=== PATIENT | female | born 1950 | race Caucasian/White ===

== ENCOUNTER → 2017-08-07 | Outpatient (CLI) | payer OTHER ==
[~2017-08-07] MED LIST: CLTP PO; CMD2 PO; CYAN3INJ; IBUP600T44 PO; MULT-506 PO; NERVE PILL; PRCUNK PO; VITAMIN B 12
--- NOTE | 2017-08-07 14:13 | MAMMOGRAPHY REPORT ---
BILATERAL DIGITAL SCREENING MAMMOGRAM WITH CAD: 08/07/2017 CLINICAL HISTORY: Routine screening. Patient has no complaints. TECHNIQUE: Current study was also evaluated with a Computer Aided Detection (CAD) system. Bilateral CC and MLO views were obtained. COMPARISON: Comparison is made to exams dated: 08/01/2016 mammogram, 07/18/2015 mammogram, 07/18/2015 u ltrasound, 07/05/2015 mammogram, 07/03/2014 mammogram, and 07/13/2013 ultrasound - [facility]. BREAST COMPOSITION: There are scattered areas of fibroglandular density in both breasts. FINDINGS: No suspicious masses, calcifications, or areas of architectural distortion are noted in ei ther breast. There has been no significant interval change compared to prior exams. Scattered bilate ral benign-appearing calcifications are not significantly changed. Circumscribed benign-appearing ma ss in the right medial breast is stable dating back to at least the 2014 exam, and was shown to repre sent a benign cyst on the prior 2014 ultrasound exam. IMPRESSION: ACR BI-RADS CATEGORY 2: BENIGN There is no mammographic evidence of malignancy. A 1 year screening mammogram is recommended. The pa tient will receive written notification of the results. Approximately 10% of breast cancers are not detected with mammography. A negative mammographic report should not delay biopsy if a clinically suggestive mass is present. Eloina Bustos M.D. ah/:08/07/2017 11:51:45 Environmental Sampling Technician: Diane RODRIGUEZ(Andria)(Nita), [facility] letter sent: Normal 1/2 BI-RADS Code: ACR BI-RADS Category 2: Benign
== END | disposition home or self-care (01) ==
LOC: C.MAMM 11:17
DX: Z12.31 Encounter for screening mammogram for malignant neoplasm of breast (principal)